=== PATIENT | female | born 1955 | race Caucasian/White ===

== ENCOUNTER → 2020-09-30 | Day surgery (SDC) | payer OTHER ==
[~2020-09-30] MED LIST: AMBIEN CR12.5 MG PO; CRESTOR20 MG PO; LEXAPRO20 MG PO; LOSARTAN POTAS100 MG PO; MECLIZINE HCL25 M1 PO; NORCO5 PO; ZOFRAN ODT4 MG SUBLING
--- NOTE | ~2020-09-30 | OP ---
[facility] [address] [place] [address] OPERATIVE REPORT Name: BLANE MARTINEZ Room: [facility]#: [id number] Admission: 09/30/20 Attend Phys: Javier Hassan Discharge: Date of : 59 Report #: [id number] THIS REPORT FOR: cc: Shara Palma,Shara Conteh,Javier Schaeffer MD ~ DATE OF SERVICE: 09/30/2020 PREOPERATIVE DIAGNOSIS: Incarcerated ventral incisional hernia. POSTOPERATIVE DIAGNOSIS: Incarcerated ventral incisional hernia. OPERATION: Laparoscopic repair of incarcerated ventral incisional hernia with mesh. SURGEON: Javier Hassan MD ANESTHESIA: General. ESTIMATED BLOOD LOSS: Minimal. SPECIMEN: None. DESCRIPTION OF PROCEDURE: After informed consent was obtained, the patient was brought to the operating room and placed supine. SCDs were placed and working, preoperative antibiotics were administered, general anesthesia was induced. The abdomen was prepped and draped in the usual sterile fashion. A 5 mm incision was made in the left upper quadrant. A 5 mm trocar was placed under direct vision. Pneumoperitoneum was established. A left sided 8 mm trocar and a right sided 5 mm trocar was placed under direct vision. I trimmed a piece of Ventralight mesh to a 10 cm [place]. It was placed into the abdomen under direct vision. It was brought up to the abdominal wall and tacked with approximately 25 absorbable tacks. I then placed a transfascial 2-0 Ethibond suture in the inferior midline of the mesh using a suture passer. The ports were then removed under direct vision. The skin was closed with 4-0 Monocryl. Incisions were dressed with Steri-Strips. COMPLICATIONS: None. DISPOSITION: The patient was taken to recovery in satisfactory condition. By: [id number] Hassan MD /nt
[2020-09-30 06:50] LABS: HEMATOCRIT 43.1 % (37.0-47.0); HEMOGLOBIN 14.6 gm/dL (12.0-15.0); MCH 29.9 pg (26.0-34.0); MCHC 33.9 g/dL (28.0-37.0); MCV 88.3 fL (80.0-100.0); RBC 4.87 mil/uL (4.20-5.00); RDW-CV 13.5 % (10.5-14.5); WBC 4.2 thou/uL (4.0-11.0)
[2020-09-30 06:59] LABS: CREATININE 0.8 mg/dL (0.6-1.3); POTASSIUM 3.5 mmol/L (3.5-5.1)
--- NOTE | 2020-09-30 11:20 | EKG ---
[place] [address] ELECTROCARDIOGRAM REPORT Name: BLANE MARTINEZ Room: [facility]#: [id number] Admission: 09/30/20 Attend Phys: Javier Vaughn Discharge: Date of : 59 Date of Service: 09/30/2024 Report #: [id number] THIS REPORT FOR: //name// [facility] Test Date: 2020-09-30 Test Time: 07:24:45 Pat Name: BLANE MARTINEZ Department: Room: Gender: F Training Coordinator: : 1955 Requested By: Matheus Jade Order Number: [id number] Esperanza MD: Declan Perkins Measurements Intervals [place] Rate: 79 P: 52 IA: 166 QRS: 38 QRSD: 91 T: 57 QT: 385 QTc: 442 Interpretive Statements Sinus rhythm Compared to ECG 05/29/2006 07:56:35 no change Electronically Signed On 09-30-2020 11:20:16 CDT by Declan Perkins [email or web address] <ELECTRONICALLY SIGNED> By: Declan Perkins MD, [facility] 09/30/20 1120 3 Declan Perkins MD, [facility] /EPI
== END | disposition home or self-care (01) ==
LOC: M.SUR 06:12
PROVIDERS: Anesthesiology; ATTEND Surgery
DX: K43.0 Incisional hernia with obstruction, without gangrene (principal); Z98.890 Other specified postprocedural states; Z79.899 Other long term (current) drug therapy; Z20.822 Contact with and (suspected) exposure to COVID-19; Z98.51 Tubal ligation status